=== PATIENT | male | born 1995 | race Caucasian/White ===

== ENCOUNTER 2025-05-23 07:56 | Outpatient (CLI) | payer BC, SELFPAY ==
--- OUTSIDE RECORDS SUMMARY | 2025-05-23 08:00 | XMS_ITS | Patient Health Record ---
Author Organization [facility] Address [address] [place], [place] [id number] Care Team Providers Care Banking Supervisor Name Role Phone DAMI Malik Unavailable [phone] Maximino Landon Unavailable Unavailable Reason For Referral No Information Social History Social History Additional Details Category Social Info Options Details Migrated Social History Migrated Social History History of tobacco use : , Smoking Status : Never used tobacco Plan Of Treatment No Information Insurance Providers Payer Name Payer Address Payer Phone Subscriber Number Group Number Insured Name Patient Relationship to Insured Coverage Start Date Coverage End Date [place] ([facility]) ATTN CLAIMS [address] [place] [address] [id number] KENIA WRIGHT Self - patient is the insured
== END 2025-05-23 07:57 | disposition home or self-care (01) ==
LOC: ANHAUDIO 07:57
PROVIDERS: PCP Family Medicine; Visit Provider Otolaryngology
DX: H93.8X2 Other specified disorders of left ear (principal); H74.8X2 Other specified disorders of left middle ear and mastoid; H61.21 Impacted cerumen, right ear; H74.02 Tympanosclerosis, left ear; Z96.22 Myringotomy tube(s) status
CPT/HCPCS: 92557; 92567

== ENCOUNTER 2025-06-24 15:49 | Outpatient (CLI) | payer BC, SELFPAY ==
--- NOTE | ~2025-06-24 | CT_ITS ---
EXAMINATION: CT IAC/mastoids BI wo con DATE: 06/24/2025 16:09 INDICATION: Unspecified eustachian tube disorder, left ear. TECHNIQUE: Computed tomography (CT) of the temporal bones was performed without intravenous contrast. Automated exposure control and iterative reconstruction technique were employed. The dose-length product was 242.07 mGy-cm. COMPARISON: None FINDINGS: RIGHT TEMPORAL BONE: The internal auditory canal, cochlea, vestibule, semicircular canals, vestibular aqueduct, and carotid canal are normal. There is a high riding jugular bulb. The facial nerve course is normal. The ossicles, Prussak space, scutum, tympanic membrane, mastoid air cells, and external auditory canal are normal. LEFT TEMPORAL BONE: The internal auditory canal, cochlea, vestibule, vestibular aqueduct, carotid canal, jugular bulb, facial nerve course, ossicles, Prussak space, and scutum are normal. 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 There is thickening of the tympanic membrane. There is a small volume of material in the external auditory canal. IMPRESSION: 1. Dehiscence of left superior semicircular canal. 2. Thickening of the left tympanic membrane with small volume of material in left external auditory canal, likely cerumen. Reviewed, dictated and finalized at location [facility] IMPRESSION: 1. Dehiscence of left superior semicircular canal. 2. Thickening of the left tympanic membrane with small volume of material in le ft external auditory canal, likely cerumen.
== END 2025-06-24 15:50 | disposition home or self-care (01) ==
LOC: MICIMG 15:50
PROVIDERS: PCP Family Medicine; Visit Provider Otolaryngology
DX: H83.8X2 Other specified diseases of left inner ear (principal); H73.92 Unspecified disorder of tympanic membrane, left ear; H69.92 Unspecified Eustachian tube disorder, left ear
CPT/HCPCS: 70480